=== PATIENT | male | born 1975 | race Caucasian/White ===

== ENCOUNTER 2018-03-29 21:02 | Emergency (ER) | payer BC ==
[2018-03-29 21:30] VITALS: BP 129/85
--- NOTE | 2018-03-29 22:00 | ER Report ---
History and Physical Time Seen By MD: 21:59 Hx. of Stated Complaint: patient fell down stairs having lower back pain. HPI/ROS CHIEF COMPLAINT: low back pain after falling on stairs HISTORY OF PRESENT ILLNESS: This is a 42 year old male. He slipped while walking down the stairs today. fell and landed on his bottom and back. Has had pain in mid low back initially. Now pain radiating to both buttock areas and having some tingling in legs. No loss of control of bowel or bladder function. No saddle anesthesia. No weakness. No fevers. Has history of degenerative disc disease. Pain worsening. Tried taking a Flexeril tablet and Ibuprofen without significant relief. Allergies: Coded Allergies: azithromycin (Verified Allergy, Severe, lip swelling, 03/29/18) Uncoded Allergies: salmon (Allergy, Intermediate, hives/welts, 03/29/18) Home Meds Active Scripts Ketorolac Tromethamine (KETOROLAC TROMETHAMINE) 10 Mg Tab, 10 MG PO Q6H Y for PAIN, #12 TAB 0 Refills Prov:MARY MENDOZA MD 03/29/18 Hydrocodone Bit/Acetaminophen (HYDROCODON-ACETAMINOPHEN 5-325) 1 Each Tablet, 1 EACH PO Q4H Y for PAIN, #12 TAB 0 Refills Prov:MARY MENDOZA MD 03/29/18 Reviewed Nurses Notes: Yes Constitutional Vital Sign - Last 24 Hours 03/29/18 21:30 Pulse 81 Resp 20 B/P (MAP) 129/85 Pulse Ox 96 O2 Delivery Room Air Physical Exam General appearance: alert no distress. Musculoskeletal: Lumbar spine has no spinal tenderness moderate paraspinal tenderness bilaterally. Skin: No lesions and no rashes. Cardiovascular: Normal capillary refill and pulses to feet. Neurological: Motor function: leg strength normal and symmetric for both legs Sensory function: normal for all leg dermatomes. Straight leg raise negative to 70 degrees. DIFFERENTIAL DIAGNOSIS: After history and physical exam differential diagnosis was considered for back pain including muscular strain, herniated disc, intra- abdominal and renal causes. Medical Decision Making EKG/Imaging Imaging LUMBAR SPINE 2 OR 3 VIEW HISTORY: Fall today. Low back pain. COMPARISON: None. Sacrum and coccyx x-rays were performed concurrently. TECHNIQUE: AP and lateral views of the lumbar spine. FINDINGS: There are 5 nonrib-bearing lumbar type vertebral bodies. Lumbar vertebral body heights are maintained. There is minimal wedging of T12 that is unchanged compared chest x-ray of 07/26/2016 and may be physiologic. There is no fracture. No listhesis. IMPRESSION: 1. No acute osseous abnormality of the lumbar spine. Report Dictated By: Fe Correa at 03/29/2018 11:12 PM SACRUM COCCYX HISTORY: Fall today. Low back pain. COMPARISON: None. Lumbar spine x-rays were performed concurrently. TECHNIQUE: AP and lateral views of the sacrum and coccyx. FINDINGS: There is no fracture or dislocation. There is slight anterior tilting of the distal coccyx, commonly seen. Sacroiliac joints are patent without widening. There is no pubic diastases. IMPRESSION: 1. No acute osseous abnormality of the sacrum or coccyx. Report Dictated By: Fe Correa at 03/29/2018 11:13 PM ED Course/Re-evaluation ED Course Some improvement with Flexeril, Toradol and Lortab. Negative x-rays. Discussed treatment of low back sprain and red flag symptoms to watch for that would indicate need to return for further evaluation. Decision to Disposition Date: Mar 29, 2018 Decision to Disposition Time: 23:26 Depart Departure Latest Vital Signs Vital Signs Date Time Temp Pulse Resp B/P (MAP) Pulse Ox O2 Delivery O2 Flow Rate FiO2 03/29/18 21:30 81 20 129/85 96 Room Air Impression: Primary Impression: Low back strain Condition: Improved Disposition: HOME OR SELF-CARE New Scripts Ketorolac Tromethamine (KETOROLAC TROMETHAMINE) 10 Mg Tab 10 MG PO Q6H Y for PAIN, #12 TAB 0 Refills Prov: MARY MENDOZA MD 03/29/18 Hydrocodone Bit/Acetaminophen (HYDROCODON-ACETAMINOPHEN 5-325) 1 Each Tablet 1 EACH PO Q4H Y for PAIN, #12 TAB 0 Refills Prov: MARY MENDOZA MD 03/29/18 Patient Instructions: Low Back Strain (ED) Additional Instructions: Take Toradol 10mg, one every 6 hours as needed for pain. Do not take the Ibuprofen while taking this medicine. Keep taking you Cyclobenzaprine (Flexeril) 10mg tablets, three times a day as needed as a muscle relaxer. Take Lortab 5/325, one every 4 hours as needed for pain. Follow-up with your regular doctor in the next 5-7 days. Light duty at work for now. No lifting over 10 lbs, no lift and twisting, no bending. Problem Qualifiers Primary Impression: Low back strain Encounter type: initial encounter Qualified Codes: S39.012A - Strain of muscle, fascia and tendon of lower back, initial encounter MARY MENDOZA MD Mar 29, 2018 21:59
[2018-03-29] MEDS ORDERED: KETOROLAC TROM 10MG TAB PO ONE (22:10)
[2018-03-29] MEDS ORDERED: APAP/HYDROCODONE 325/5 TAB PO ONE (22:10)
[2018-03-29] MEDS ORDERED: CYCLOBENZAPRINE HCL 10 MG TAB PO ONE (22:10)
--- NOTE | 2018-03-29 23:18 | RADIOLOGY IMAGING REPORT ---
[place] [facility] [place] NAME: El Grayson : 1975 MR: [id number] V: [id number] EXAM DATE: ORDERING PHYSICIAN: MARY MENDOZA TECHNOLOGIST: Location: [facility] [place] Patient: El Grayson : 1975 Visit/Account:[id number] Date of Sevice: 03/29/2018 LUMBAR SPINE 2 OR 3 VIEW HISTORY: Fall today. Low back pain. COMPARISON: None. Sacrum and coccyx x-rays were performed concurrently. TECHNIQUE: AP and lateral views of the lumbar spine. FINDINGS: There are 5 nonrib-bearing lumbar type vertebral bodies. Lumbar vertebral body heights are maintained. There is minimal wedging of T12 that is unchanged compared chest x-ray of 07/26/2016 and may be physiologic. There is no fracture. No listhesis. IMPRESSION: 1. No acute osseous abnormality of the lumbar spine. Report Dictated By: Fe Correa at 03/29/2018 11:12 PM Report E-Signed By: Fe Correa at 03/29/2018 11:13 PM WSN:[id number]
--- NOTE | 2018-03-29 23:19 | RADIOLOGY IMAGING REPORT ---
[place] [facility] [place] El Grayson : 1975 MR: [id number] V: [id number] EXAM DATE: ORDERING PHYSICIAN: MARY MENDOZA TECHNOLOGIST: [place] [facility] [place] El Grayson : 1975 Visit/Account:[id number] Date of Sevice: 03/29/2018 SACRUM COCCYX HISTORY: Fall today. Low back pain. COMPARISON: None. Lumbar spine x-rays were performed concurrently. TECHNIQUE: AP and lateral views of the sacrum and coccyx. FINDINGS: There is no fracture or dislocation. There is slight anterior tilting of the distal coccyx, commonly seen. Sacroiliac joints are patent without widening. There is no pubic diastases. IMPRESSION: 1. No acute osseous abnormality of the sacrum or coccyx. Report Dictated By: Fe Correa at 03/29/2018 11:13 PM Report E-Signed By: Fe Correa at 03/29/2018 11:15 PM WSN:[id number]
[2018-03-29] MEDS ORDERED: ACET/HYDROC 5/325MG TH ER ONLY 2 TAB/BOTTLE PO ONE (23:25)
[2018-03-29] MEDS ORDERED: KETOROLAC TROM 10 MG TAB TH PO ONE (23:25)
[2018-03-29] MEDS ORDERED: LOR5/325 PO (23:29)
[2018-03-29] MEDS ORDERED: KET10 PO (23:29)
[2018-03-30] MEDS ORDERED: UMEC1DIS INH (04:51)
[2018-03-30] MEDS ORDERED: CYCL10TA29 PO (04:51)
[2018-03-30] MEDS ORDERED: GABA-549 PO (04:51)
[2018-03-30] MEDS ORDERED: TRAZ50TA34 PO (04:51)
[2018-03-30] MEDS ORDERED: MONT10TA PO (04:51)
[2018-03-30] MEDS ORDERED: TAMS0.4C70 PO (04:51)
== END 2018-03-29 23:40 | disposition home or self-care (01) ==
LOC: ER 21:35
DX: S39.012A Strain of muscle, fascia and tendon of lower back, initial encounter (principal)
CPT/HCPCS: 72100; 72220; 99283

== ENCOUNTER → 2018-04-05 | Outpatient (CLI) | payer BC ==
[~2018-04-05] MED LIST: CYCL10TA29 PO; GABA-549 PO; KET10 PO; LOR5/325 PO; MONT10TA PO; TAMS0.4C70 PO; TRAZ50TA34 PO; UMEC1DIS INH
--- NOTE | 2018-04-05 12:04 | RADIOLOGY IMAGING REPORT ---
[place] [facility] [place] El Grayson : 1975 MR: [id number] V: [id number] EXAM DATE: ORDERING PHYSICIAN: JAM CARUSO TECHNOLOGIST: Location: [facility] [place] Patient: El Grayson : 1975 Visit/Account:[id number] Date of Sevice: 04/05/2018 L SPINE W/O CONTRAST COMPARISON: None Additional pertinent history: Low back pain with radiculopathy. Technique: Multiplanar multisequence lumbar spine MRI was performed without gadolinium enhancement. FINDINGS: Vertebral body heights and alignment: Negative. Vertebral marrow signal: Decreased marrow signal on the T1-weighted images throughout the lumbar spin e and visualized portions of the sacrum concerning for a diffuse marrow replacing process. No focal lesion noted. Distal thoracic cord and conus: T12-L1 The conus ends at T12-L1. Surrounding soft tissues: Negative. Inspection of the disc spaces reveal the following: L5-S1: Posterior broad-based disc protrusion with a superimposed right lateral recess disc extrusion with impingement upon the traversing right S1 nerve root. Mild bilateral neural foraminal narrowing. No significant central canal stenosis. L4-L5: Posterior broad-based disc protrusion with facet hypertrophic changes. Mild bilateral neural foraminal narrowing without significant canal stenosis. L3-L4: Circumferential disc bulging with facet hypertrophic changes. No significant canal or neural foraminal narrowing. L2-L3: Posterior broad-based disc protrusion with a superimposed right lateral recess disc extrusion with impingement upon the traversing right L3 nerve root. Mild bilateral neural foraminal narrowing with mild central canal stenosis. L1-L2: Circumferential disc bulging with facet hypertrophic changes. Mild bilateral neural foraminal narrowing without canal stenosis. T12-L1: Negative. IMPRESSION: 1. Multilevel spondylitic change as discussed above. 2. Findings felt to be potentially most significant at L2-L3 with mild bilateral neural foraminal na rrowing and mild central canal stenosis. 3. Findings concerning for a diffuse marrow replacing process involving the lumbar spine and pelvis. Differential considerations would include myeloproliferative disorders and marrow based malignancie s. Correlation with patient's history would be of benefit. Report Dictated By: Rickey Ha MD at 04/05/2018 11:53 AM Report E-Signed By: Rickey Ha MD at 04/05/2018 12:01 PM WSN:[id number]
== END ==
LOC: MRI 09:54
PROVIDERS: ATTEND Family Medicine
DX: M47.896 Other spondylosis, lumbar region (principal)
CPT/HCPCS: 72148

== ENCOUNTER → 2018-04-11 | Outpatient (REF) | payer BC ==
[2018-04-11 11:10] LABS: PLATELET COUNT, AUTOMATED 258 K/uL (150-450)
== END ==
LOC: ZZSENDIN 10:53
PROVIDERS: ATTEND Family Medicine
DX: C94.6 Myelodysplastic disease, not elsewhere classified (principal)
CPT/HCPCS: 85007; 85027

== ENCOUNTER → 2018-05-26 | Outpatient (CLI) | payer BC ==
[2018-05-26 11:11] LABS: PLATELET COUNT, AUTOMATED 277 K/uL (150-450)
== END ==
LOC: LAB 10:46
PROVIDERS: ATTEND Surgery
DX: D51.0 Vitamin B12 deficiency anemia due to intrinsic factor deficiency (principal)
CPT/HCPCS: 36415; 85025

== ENCOUNTER 2018-06-08 10:16 | Outpatient (RCR) | payer BC ==
[2018-04-27 14:46] VITALS: BP 138/91
--- NOTE | 2018-04-27 17:56 | ONCOLOGY CONSULTATION ---
EVENT DATE: April 27, [address] Smith. REASON FOR CONSULTATION Evaluation and management of diffuse marrow displacing process of the lumbar spine and pelvis by MRI. HEMATOLOGY/ONCOLOGY HISTORY Patient is a 43-year-old male who has back injury lately and he had an MRI of the lumbar spine done on April 05, 2018 which showed diffuse marrow displacing process involving the lumbar spine and pelvis, and they put differential diagnosis may include myeloproliferative disorder or marrow based malignancies. Patient denies any constitutional symptoms. PAST MEDICAL HISTORY Pernicious anemia, on vitamin B12 shots. PAST SURGICAL HISTORY Appendectomy. FAMILY HISTORY Mother had cervical cancer. Maternal grandmother had colon cancer. SOCIAL HISTORY Patient is with one child. He works at [employer] He quit smoking at the age of 30 after three packs a day for 12 years. Denies any abuse of alcohol or illicit drugs. CURRENT MEDICATIONS 1. Anoro Ellipta 62.5/25 mcg inhalation one puff daily. 2. Trazodone 50 mg at bedtime. 3. Singulair 10 mg as needed per day. 4. Flomax 0.4 mg once daily. 5. Gabapentin 120 mg daily. ALLERGIES Z-KIT which caused swelling of the eyes and lips. REVIEW OF SYSTEMS CONSTITUTIONAL: No appetite or weight change. No fever, chills or sweating. No recent infection. HEENT: Ears: No tinnitus or hearing problem. Nose: He has nasal discharge. No epistaxis. Throat: No sore throat or mouth ulcers. Eyes: No diplopia or visual changes. RESPIRATORY: He has shortness of breath. No cough, expectoration or hemoptysis. CARDIOVASCULAR: No chest pain, orthopnea, or paroxysmal nocturnal dyspnea (PND). No edema. No palpitations. GASTROINTESTINAL: No nausea or vomiting. No diarrhea or constipation. No change in bowel movements. No heartburn or swallowing difficulties. No abdominal pain. No jaundice. No hematemesis, melena or rectal bleeding. GENITOURINARY: No hematuria or dysuria. MUSCULOSKELETAL: He has pain in the wrists, elbows, knees and back. NEUROLOGICAL: No tingling. He has some numbness in the feet due to his back problem. No headaches or convulsions. HEMATOLOGIC/LYMPHATIC: No bleeding or easy bruising. He is weak, tired and fatigued. No enlarged lymph nodes. SKIN: No skin rash or lumps. PSYCHIATRIC: No anxiety or depression. PHYSICAL EXAMINATION GENERAL: Looks stable. Well-developed, well-nourished, and in no acute distress. VITAL SIGNS: Blood pressure 138/91, pulse 115 per minute, respirations 16 per minute, temperature 98.8, pulse ox 96% on room air. HEENT: Head: Atraumatic. No sinus tenderness to palpation. Eyes: No icterus or conjunctivitis. Mouth and Throat: No oral thrush or mucositis. NECK: Supple. No cervical or supraclavicular lymphadenopathy. LUNGS: Clear to auscultation and percussion bilaterally. HEART: Regular rate and rhythm. No gallops, murmurs, clicks or rubs. ABDOMEN: Soft and lax. No tenderness. No hepatosplenomegaly. No masses. EXTREMITIES: No cyanosis, clubbing or edema. LYMPHATICS: No peripheral lymphadenopathy. NEUROLOGICAL: Conscious, alert and oriented times three. No focal motor or sensory deficits. PSYCHIATRIC: Mood and affect appear normal. SKIN: No skin rash, bruise or purpuric eruption. ASSESSMENT 1. 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 This could be due to either myeloproliferative disorder or bone marrow-based malignancies, but also could be due to infiltration of the bone marrow with iron, like in iron overload. Patient has a history of B12 deficiency due to pernicious anemia, on vitamin B12 shots for a long time now. I am planning to check his CBC today. I am planning also to check his retic count to rule out any underlying autoimmune disease. I will do also iron studies as iron disposition in the bone marrow can give that signal in the MRI. I may consider bone marrow aspiration biopsy if those tests are inconclusive for the diagnosis. 2. Pernicious anemia, on vitamin B12 shots. I am planning to check his antiparietal antibody and intrinsic factor blocking antibody to be sure that he has pernicious anemia or not, and we will continue vitamin B12 shots at monthly intervals. PLAN 1. CBC. 2. Retic count. 3. Iron studies with ferritin. 4. Antiparietal cell antibody. 5. Intrinsic factor blocking antibody. 6. Consider bone marrow aspiration biopsy. 7. Patient to return after the above for further evaluation and management. [facility]
[2018-05-02 10:30] VITALS: BP 140/87
[2018-05-02 10:52] LABS: PLATELET COUNT, AUTOMATED 274 K/uL (150-450)
[2018-06-08 10:58] VITALS: BP 119/80
[2018-06-08] MEDS ORDERED: INFLUENZA VIRUS VAC 0.5ML SYR IM ONLY ONE (11:30)
--- NOTE | 2018-06-08 18:00 | ONCOLOGY FOLLOW UP NOTE ---
EVENT DATE: June 08, 2018 DIAGNOSES 1. 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 2. Pernicious anemia, on vitamin B12 shots. CHIEF COMPLAINT Patient is here today for followup of his abnormal MRI with diffuse bone marrow replacement of the lumbar spine and pelvis. HEMATOLOGY/ONCOLOGY HISTORY Patient is a 43-year-old male who had a back injury lately, and he had an MRI of the lumbar spine done on April 05, 2018, which showed diffuse marrow displacing process involving the lumbar spine and pelvis, and they put differential diagnosis may include myeloproliferative disorder or marrow-based malignancies. Patient denies any constitutional symptoms. Iron studies were normal. Bone marrow aspiration biopsy done on May showed hypercellular marrow with trilineage hematopoiesis, slight granulocytic and megakaryocytic hyperplasia, polyclonal lymphocytosis, and plasmacytosis with increased storage of iron without ring sideroblasts. HISTORY OF PRESENT ILLNESS Patient is here today for followup of his diffuse bone marrow displacing process of the lumbar spine and pelvis by MRI. The patient is doing fine currently except having pain of the right hip from the previous bone marrow biopsy site. Other than that, he is totally asymptomatic. PAST MEDICAL HISTORY Pernicious anemia, on vitamin B12 shots. PAST SURGICAL HISTORY Appendectomy. FAMILY HISTORY Mother had cervical cancer. Maternal grandmother had colon cancer. SOCIAL HISTORY Patient is with one child. He works at [email or web address]. He quit smoking at the age of 30 after three packs a day for 12 years. Denies any abuse of alcohol or illicit drugs. CURRENT MEDICATIONS 1. Anoro Ellipta 62.5/25 mcg inhalation one puff daily. 2. Trazodone 50 mg at bedtime. 3. Singulair 10 mg as needed per day. 4. Flomax 0.4 mg once daily. 5. Gabapentin 120 mg daily. ALLERGIES Z-KIT which caused swelling of the eyes and lips. REVIEW OF SYSTEMS CONSTITUTIONAL: No appetite or weight change. No fever, chills, or sweating. No recent infection. HEENT: Ears: No tinnitus or hearing problem. Nose: He has nasal discharge. No epistaxis. Throat: No sore throat or mouth ulcers. Eyes: No diplopia or visual changes. RESPIRATORY: He has shortness of breath. No cough, expectoration, or hemoptysis. CARDIOVASCULAR: No chest pain, orthopnea, or paroxysmal nocturnal dyspnea (PND). No edema. No palpitations. GASTROINTESTINAL: No nausea or vomiting. No diarrhea or constipation. No change in bowel movements. No heartburn or swallowing difficulties. No abdominal pain. No jaundice. No hematemesis, melena, or rectal bleeding. GENITOURINARY: No hematuria or dysuria. MUSCULOSKELETAL: He has pain of the right hip at the site of the bone marrow biopsy which is getting better. NEUROLOGICAL: No tingling. He has some numbness in the feet due to his back problem. No headaches or convulsions. HEMATOLOGIC/LYMPHATIC: No bleeding or easy bruising. He is weak, tired and fatigued. No enlarged lymph nodes. SKIN: No skin rash or lumps. PSYCHIATRIC: No anxiety or depression. PHYSICAL EXAMINATION GENERAL: Looks stable. Well developed, well nourished, and in no acute distress. VITAL SIGNS: Blood pressure 119/80, pulse 85 per minute, respirations 16 per minute, temperature 97.1, pulse ox 95% on room air. HEENT: Head: Atraumatic. No sinus tenderness to palpation. Eyes: No icterus or conjunctivitis. Mouth and Throat: No oral thrush or mucositis. NECK: Supple. No cervical or supraclavicular lymphadenopathy. LUNGS: Clear to auscultation and percussion bilaterally. HEART: Regular rate and rhythm. No gallops, murmurs, clicks or rubs. ABDOMEN: Soft and lax. No tenderness. No hepatosplenomegaly. No masses. EXTREMITIES: No cyanosis, clubbing, or edema. LYMPHATICS: No peripheral lymphadenopathy. NEUROLOGICAL: Conscious, alert, and oriented times three. No focal motor or sensory deficits. PSYCHIATRIC: Mood and affect appear normal. SKIN: No skin rash, bruise, or purpuric eruption. DIAGNOSTIC DATA CBC showed white count 7.2, hemoglobin 18.4, hematocrit 53.9, platelets 277,000. Serum iron is 117, TIBC 383, iron saturation 30.5, and ferritin 127. Bone marrow aspiration biopsy on the May showed hypercellular bone marrow with trilineage hematopoiesis, slight granulocytic and megakaryocytic hyperplasia, monoclonal lymphocytosis, and plasmacytosis. There is increased storage of iron without ring sideroblasts. ASSESSMENT 1. 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 Iron studies came back normal. CBC showed white count 7.2, hemoglobin 18.4, hematocrit 53.9, platelets 277. Bone marrow aspiration biopsy on the May showed hypercellular marrow with trilineage hematopoiesis, slight granulocytic and megakaryocytic hyperplasia, monoclonal lymphocytosis, and plasmacytosis with increased storage of iron without ring sideroblasts. Given this information, there is no evidence of myeloma, leukemia, or lymphoma. I am planning to follow his CBC every six months, and if his CBC is very out of order, then will consider repeat bone marrow at that time. At the moment, there is no evidence of hematologic disorder to explain the diffuse replacement of the bone marrow in the lumbar spine and pelvis. I explained that to the patient, and patient is happy with the results. I will see him in six months with CBC. 2. Pernicious anemia, on vitamin B12 shots. Anti-parietal cell antibodies and intrinsic factor antibodies came back negative. I advised the patient to continue vitamin B12 shots every month as the patient presented when he had low vitamin B12 with neuropathy, which will not hurt him to take the B12 shots. PLAN 1. Continue followup. 2. Patient to return in six months with CBC. 3. Patient to contact us for any new concerns or complaints. 4. Continue vitamin B12 shots every month. [place]
== END 2018-07-17 08:24 | disposition home or self-care (01) ==
LOC: ONC 10:16
PROVIDERS: ATTEND Internal Medicine Hematology
DX: Z94.81 Bone marrow transplant status (principal); D51.0 Vitamin B12 deficiency anemia due to intrinsic factor deficiency; Z79.899 Other long term (current) drug therapy; Z87.891 Personal history of nicotine dependence; R53.1 Weakness; R53.83 Other fatigue; R06.02 Shortness of breath; Z23 Encounter for immunization
CPT/HCPCS: 36415; 82728; 83540; 83550; 85025; 85045; 86255; 86340; 90471; 90674; 99202

== ENCOUNTER 2018-11-13 15:15 | Outpatient (RCR) | payer BC | END 2018-11-14 16:15 | disposition home or self-care (01) | LOC: ONC 15:15 | PROVIDERS: ATTEND Internal Medicine Hematology | DX: Z02.9 Encounter for administrative examinations, unspecified (principal) ==

== ENCOUNTER 2018-12-14 13:19 | Outpatient (RCR) | payer BC ==
[~2018-12-14 13:19] MED LIST changes: -TRAZ50TA34 PO; +TRAZ50TA52 PO
[2018-12-14 13:42] LABS: PLATELET COUNT, AUTOMATED 293 K/uL (150-450)
--- NOTE | 2018-12-14 14:54 | ONCOLOGY FOLLOW UP NOTE ---
EVENT DATE: December 14, 2018 DIAGNOSES 1. 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 2. Pernicious anemia, on vitamin B12 shots. CHIEF COMPLAINT Patient is here today for followup of his abnormal MRI with diffuse bone marrow replacement of the lumbar spine and pelvis. HEMATOLOGY/ONCOLOGY HISTORY Patient is a 43-year-old male who had a back injury lately, and he had an MRI of the lumbar spine done on April 05, 2018, which showed diffuse marrow displacing process involving the lumbar spine and pelvis, and they put differential diagnosis may include myeloproliferative disorder or marrow-based malignancies. Patient denies any constitutional symptoms. Iron studies were normal. Bone marrow aspiration biopsy done on May showed hypercellular marrow with trilineage hematopoiesis, slight granulocytic and megakaryocytic hyperplasia, polyclonal lymphocytosis, and plasmacytosis with increased storage of iron without ring sideroblasts. HISTORY OF PRESENT ILLNESS Patient is here today for followup of his diffuse bone marrow replacement process of the lumbar spine and pelvis by MRI. Patient had a bone marrow biopsy, which did not show any hematological abnormality. He had a cyst removed from the back of his neck recently. He has some neuropathy in his feet and occasional headache. He is short-winded sometimes. PAST MEDICAL HISTORY Pernicious anemia, on vitamin B12 shots. PAST SURGICAL HISTORY Appendectomy. FAMILY HISTORY Mother had cervical cancer. Maternal grandmother had colon cancer. SOCIAL HISTORY Patient is with one child. He works at [employer]. He quit smoking at the age of 30 after three packs a day for 12 years. Denies any abuse of alcohol or illicit drugs. CURRENT MEDICATIONS 1. Anoro Ellipta 62.5/25 mcg inhalation one puff daily. 2. Trazodone 50 mg at bedtime. 3. Singulair 10 mg as needed per day. 4. Flomax 0.4 mg once daily. 5. Gabapentin 120 mg daily. ALLERGIES Z-KIT which caused swelling of the eyes and lips. REVIEW OF SYSTEMS CONSTITUTIONAL: No appetite or weight change. No fever, chills, or sweating. No recent infection. HEENT: Ears: No tinnitus or hearing problem. Nose: No nasal discharge or epistaxis. Throat: No sore throat or mouth ulcers. Eyes: No diplopia or visual changes. RESPIRATORY: He has exertional shortness of breath. No cough, expectoration, or hemoptysis. CARDIOVASCULAR: No chest pain, orthopnea, or paroxysmal nocturnal dyspnea (PND). No edema. No palpitations. GASTROINTESTINAL: No nausea or vomiting. No diarrhea or constipation. No change in bowel movements. No heartburn or swallowing difficulties. No abdominal pain. No jaundice. No hematemesis, melena, or rectal bleeding. GENITOURINARY: No hematuria or dysuria. MUSCULOSKELETAL: No pain in the muscles, joints, or bones. NEUROLOGIC: He has neuropathy in his feet and occasional headache. HEMATOLOGIC/LYMPHATIC: No bleeding or easy bruising. No weakness or fatigue. No enlarged lymph nodes. SKIN: No skin rash or lumps. PSYCHIATRIC: No anxiety or depression. PHYSICAL EXAMINATION GENERAL: Looks stable. Well developed, well nourished, and in no acute distress. VITAL SIGNS: Blood pressure 117/65, pulse 79 per minute, respirations 16 per minute, 97% on room air. HEENT: Head: Atraumatic. No sinus tenderness to palpation. Eyes: No icterus or conjunctivitis. Mouth and Throat: No oral thrush or mucositis. NECK: Supple. No cervical or supraclavicular lymphadenopathy. LUNGS: Clear to auscultation and percussion bilaterally. HEART: Regular rate and rhythm. No gallops, murmurs, clicks, or rubs. ABDOMEN: Soft and lax. No tenderness. No hepatosplenomegaly. No masses. EXTREMITIES: No cyanosis, clubbing, or edema. LYMPHATICS: No peripheral lymphadenopathy. NEUROLOGIC: Conscious, alert, and oriented times three. No focal motor or sensory deficits. PSYCHIATRIC: Mood and affect appear normal. SKIN: No skin rash, bruise, or purpuric eruption. DIAGNOSTIC DATA Pending. ASSESSMENT 1. 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 Iron studies came back normal. CBC showed white count 7.2, hemoglobin 18.4, hematocrit 53.9, platelets 277,000. Bone marrow aspiration biopsy on the May showed hypercellular marrow with trilineage hematopoiesis, slight granulocytic and megakaryocytic hyperplasia, monoclonal lymphocytosis, and plasmacytosis with increased storage of iron without ringed sideroblasts. There was no evidence of myeloma, leukemia, or lymphoma. I am planning to continue followup every six months with CBC to be checked every visit. So far, no evidence of hematological disease to explain the bone marrow replacement by the MRI. I am planning to see the patient again in six months with CBC. 2. Pernicious anemia, on vitamin B12 shots. Antiparietal cell antibodies and intrinsic factor antibodies came back negative. I advised the patient to continue vitamin B12 shots every month. PLAN 1. Continue followup. 2. Continue vitamin B12, 1000 mcg every month. 3. Patient to return in six months with CBC. 4. Patient to contact us for any new concern or complaints. [place]
[2019-03-12] MEDS ORDERED: IBUP-56 PO (15:32)
[2019-03-28] MEDS ORDERED: MONT10TA PO (10:47)
[2019-03-28] MEDS ORDERED: TRAZ50TA52 PO (10:47)
[2019-03-28] MEDS ORDERED: UMEC1DIS INH (10:47)
[2019-03-28] MEDS ORDERED: TAMS0.4C25 PO (10:47)
[2019-03-28] MEDS ORDERED: MELO-207 PO (10:47)
[2019-03-28] MEDS ORDERED: CYAN1000 IJ (10:51)
[2019-03-28] MEDS ORDERED: GABA-535 PO (10:59)
[2019-03-29] MEDS ORDERED: MELO-205 PO (08:01)
== END 2019-01-15 14:49 | disposition home or self-care (01) ==
LOC: SPU 13:19
PROVIDERS: ATTEND Internal Medicine Hematology
DX: M99.63 Osseous and subluxation stenosis of intervertebral foramina of lumbar region (principal); D72.820 Lymphocytosis (symptomatic); D72.822 Plasmacytosis; D51.0 Vitamin B12 deficiency anemia due to intrinsic factor deficiency; Z87.891 Personal history of nicotine dependence; Z79.899 Other long term (current) drug therapy; R06.02 Shortness of breath; Z94.81 Bone marrow transplant status
CPT/HCPCS: 36415; 85025; 99212

== ENCOUNTER → 2019-03-28 | Outpatient (CLI) | payer BC ==
[~2019-03-28] MED LIST changes: +CYAN1000 IJ; +GABA-535 PO; +IBUP-56 PO; +MELO-205 PO; +MELO-207 PO; +TAMS0.4C25 PO
[2019-03-28 12:29] LABS: LDL CHOLESTEROL 112 mg/dl
== END ==
LOC: LAB 10:42
PROVIDERS: ATTEND Emergency Medicine
DX: D51.0 Vitamin B12 deficiency anemia due to intrinsic factor deficiency (principal); M54.9 Dorsalgia, unspecified
CPT/HCPCS: 36415; 82040; 82247; 82306; 82310; 82374; 82435; 82465; 82565; 82607; 82947; 83036; 83718; 84075; 84132; 84155; 84295; 84443; 84450; 84460; 84478; 84520